=== PATIENT | male | born 1995 | race Caucasian/White ===

== ENCOUNTER 2018-06-03 21:22 | Observation (INO) | payer OTHER ==
[~2018-06-03] VITALS: Ht 182.9 cm; Wt 73.1 kg
[2018-06-03 21:52] LABS: BASO % 0.3 % (0.0-2.0); EOS # 0.1 (0.0-0.7); EOS % 1.7 % (0-4.0); GRAN # 4.3 (1.4-6.5); GRAN % 56.3 % (42.2-75.2); HEMATOCRIT 41.2 % (42.0-52.0); LYMPH # 2.6 (1.2-3.4); LYMPH % 33.4 % (20.0-51.0); MEAN CELL VOLUME 92 fl (80.0-100.0); MEAN CORPUSCULAR HEMOGLOBIN 31 pg (27.0-31.0); MEAN CORPUSCULAR HGB CONC 34 g/dl (33.0-37.0); MONO # 0.6 (0.1-0.6); MONO % 7.4 % (1.7-9.3); PLATELET COUNT 212 K/mm3 (130-400); RED BLOOD COUNT 4.47 M/mm3 (4.20-5.60); REDCELL DISTRIBUTION WIDTH-CV 13.1 % (11.5-14.5)
[2018-06-03] MEDS ORDERED: KEPPRA 500MG500 MG PO (21:53)
[2018-06-03 22:02] LABS: ALANINE AMINOTRANSFERASE 33 U/L (21-72); ALBUMIN 4.7 gm/dL (3.5-5.0); ALKALINE PHOSPHATASE 56 U/L (50-136); ANION GAP 16 mmol/L (7-16); AST,SGOT 34 U/L (15-37); BILIRUBIN,TOTAL 0.4 mg/dL (0.0-1.0); BLOOD UREA NITROGEN 14 mg/dL (9-20); CALCIUM 9.6 mg/dL (8.4-10.2); CARBON DIOXIDE 23 mmol/L (22-30); CHLORIDE 102 mmol/L (98-107); CREATININE, serum 0.88 mg/dL (0.66-1.25); GLUCOSE 123 mg/dL (74-106); POTASSIUM 3.9 mmol/L (3.4-5.0); SODIUM 141 mmol/L (137-145); TOTAL PROTEIN 7.5 gm/dL (6.4-8.2)
[2018-06-03 22:04] LABS: ALCOHOL(ethanol),MEDICAL < 10 mg/dL
[2018-06-03 22:18] LABS: PROLACTIN 85.3 ng/mL (3.7-17.9)
[2018-06-03 23:44] VITALS: BP 103/53; PULSE 63
--- NOTE | 2018-06-04 00:10 | NUR ---
Pt admitted to room 314 on the medical floor from ER- dx new onset seizure, VSS, pt denies pain- seizure pads on bed, INT to left forearm patent, Tele on- requesting some food- given sandwich/pudding. Has many college friends at bedside-- mom did arrive from [place]-- will stay the night. Neuro,s with no deficits-- up to bathroom with assist--voided 300cc isaias urine-specimem sent to lab--
[2018-06-04 01:27] LABS: TRICYCLIC ANTIDEPRESS URINE NEGATIVE
[2018-06-04 01:29] LABS: COLLECTION METHOD CLEAN CATCH
[2018-06-04 01:38] LABS: MUCOUS Present /lpf; PH 6 (5-8); SQUAMOUS EPITHELIAL None Seen /hpf; URINE APPEARANCE Clear; URINE BACTERIA Rare /hpf; URINE BILIRUBIN Negative (NEGATIVE); URINE BLOOD Negative (NEGATIVE); URINE COLOR Yellow; URINE GLUCOSE Negative (NEGATIVE); URINE KETONE 1+ (NEGATIVE); URINE LEUKOCYTE ESTERASE Negative (NEGATIVE); URINE NITRATE Negative (NEGATIVE); URINE PROTEIN(semi-quant) 1+ (NEGATIVE); URINE RBC 0-2 /hpf; URINE UROBILINOGEN Negative (NEGATIVE)
[2018-06-04 04:27] VITALS: BP 99/49; PULSE 69; TEMP 97.6
--- NOTE | 2018-06-04 05:38 | NUR ---
Quiet night- VSS, denies headache- no seizure activity- no neuro deficits
[2018-06-04 06:07] LABS: BASO % 0.2 % (0.0-2.0); EOS % 0.1 % (0-4.0); GRAN # 10.6 (1.4-6.5); GRAN % 82.1 % (42.2-75.2); HEMATOCRIT 38.5 % (42.0-52.0); LYMPH # 1.7 (1.2-3.4); LYMPH % 12.7 % (20.0-51.0); MEAN CELL VOLUME 92 fl (80.0-100.0); MEAN CORPUSCULAR HEMOGLOBIN 31 pg (27.0-31.0); MEAN CORPUSCULAR HGB CONC 34 g/dl (33.0-37.0); MEAN PLATELET VOLUME 11.3 fl (7.4-10.4); MONO # 0.6 (0.1-0.6); MONO % 4.6 % (1.7-9.3); PLATELET COUNT 192 K/mm3 (130-400); RED BLOOD COUNT 4.17 M/mm3 (4.20-5.60); REDCELL DISTRIBUTION WIDTH-CV 13.2 % (11.5-14.5)
[2018-06-04 06:21] LABS: CALCIUM 9.1 mg/dL (8.4-10.2); CREATININE, serum 0.76 mg/dL (0.66-1.25); POTASSIUM 4.1 mmol/L (3.4-5.0)
--- NOTE | 2018-06-04 07:17 | NUR ---
SPOKE TO MOM AND PT REGARDING THE MRI. MOM WANTED TO WAIT UNTIL OUR DOCTORS TALK TO DR KATJA SANCHES IN [place]. SAME MSG CONVEYED TO SABINO, HIS NURSE. HERMILO ON THE FRONT OF THE CHART.
[2018-06-04 08:05] VITALS: BP 92/36; PULSE 58; TEMP 98
--- NOTE | 2018-06-04 09:20 | NUR ---
Assessment complete. Pt is AXO X3, denies having any pain at this time. Breathing is even and unlabored on room air. Tele on. LF INT flushes easily, remains free of complications, and is CDI. Pt's mother is at the bedside; all questions answered. Pt is sitting up in the bed watching TV at this time and he denies further needs. Call light within reach, will continue to monitor.
[2018-06-04] MEDS ORDERED: KEPPRA 500MG500 MG PO (10:28)
[2018-06-04] MEDS ORDERED: TYLENOL 500MG500 MG PO (10:28)
[2018-06-04] MEDS ORDERED: DECADRON 4MG TAB4 MG PO (10:29)
--- NOTE | 2018-06-04 11:23 | NUR ---
Initial visit; Patient and family thanked Director Of [employer] for looking in on him and keeping him in her prayers and offering God's blessings.
--- NOTE | 2018-06-04 12:17 | NUR ---
Pt discharged at this time. LF INT discontinued with the catheter tip intact. Education provided and all questions were answered. Pt and his mother both verbalize understanding. Pt escourted out ambulatory with tech. [place]
--- NOTE | 2018-06-04 14:52 | NUR ---
SW attended clinical rounding and met with patient and family to discuss discharge planning. Patient is a [employer] student currently. He doesnt have a PCP and he obtains his medications from [facility]. Patient is dc today with no unmet discharge needs at this time.
== END 2018-06-04 12:18 | disposition home or self-care (01) ==
LOC: COL.ER 21:22 → MEDICAL 22:34
PROVIDERS: Emergency Medicine; Nurse Practitioner Family; ADMIT Hospitalist
DX: R56.9 Unspecified convulsions (principal); R41.844 Frontal lobe and executive function deficit; D18.00 Hemangioma unspecified site; D72.829 Elevated white blood cell count, unspecified; Z88.3 Allergy status to other anti-infective agents
CPT/HCPCS: G0378; J1100; J1953; J2405